=== PATIENT | female | born 1955 | race American Indian/Alaskan Native ===

== ENCOUNTER → 2018-02-24 | Day surgery (SDC) | payer OTHER ==
[~2018-02-24] MED LIST: Lidocaine 2% MPF (5 ml) Inj ONE; Midazolam 2 MG/2 ML VIAL ONE
[2018-02-24 17:12] VITALS: BMI 34.3
[2018-02-24 21:57] VITALS: TEMP 97.5
[2018-02-24 22:57] VITALS: BP 156/75; PULSE 83; RESP 18; O2SAT 97
--- NOTE | 2018-02-25 18:37 | VAS ---
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 She underwent a CTA showing bilateral SFA and infrageniculate disease and therefore she was brought to the [facility] for further evaluation and treatment. PROCEDURE PERFORMED: Distal abdominal aortogram with bilateral iliac runoff, selective bilateral iliofemoral angiogram with runoff, 8-Kenyan left femoral arterial access, Mynx closure device for hemostasis. TECHNIQUES OF PROCEDURE: After obtaining informed consent, the patient was brought to the cardiac cath suite in post-absorptive and nonsedated state. The patient was prepped and draped in the usual sterile fashion. A 2% lidocaine was used for infiltration of anesthesia. Using modified Seldinger technique, 6-Kenyan sheath was introduced into the left femoral artery. Left iliofemoral angiogram with runoff was performed using a bolus kieran technique. Subsequently over a Glidewire, catheter was advanced into the abdominal aorta. Abdominal aortogram with bilateral iliac runoff was performed. Subsequently, the catheter was advanced across the aortoiliac bifurcation to the right common femoral artery. Digital subtraction angiographic views of the right-sided SFA, left and right popliteal were obtained. Subsequently with the soft glide catheter, 90 cm glide sheath was advanced to the right popliteal artery. Digital subtraction angiographic views of right below the knee and right foot profile was obtained. Angiographic findings of the left lower extremity, left common iliac, external iliac patent, profunda femoris patent, SFA patent, 2-vessel runoff below the knee of the AT and peroneal. Right lower extremity, right common iliac, external iliac is patent. SFA profunda femoris patent, one-vessel runoff below the knee of peroneal, AT and PT 100% occluded, peroneal distal diffuse disease with very good collateral flow. Reconstitution of the dorsalis pedis via collateral from the peroneal with good distal muscle blush. IMPRESSION: Distal microvascular disease, patent inflow, both the superficial femoral arteries were patent. RECOMMENDATION: Aggressive medical management and risk factor modification. The patient can be transferred back to the [facility] and can proceed with debridement of the toes. Devan Eugene MD [facility] # [id number]
== END | disposition home or self-care (01) ==
LOC: C.CATHLAB 13:03
PROVIDERS: ATTEND Internal Medicine Interventional Cardiology
DX: I70.261 Atherosclerosis of native arteries of extremities with gangrene, right leg (principal)
CPT/HCPCS: 36246; 36248; 82948; J1644; J2250; J3010